=== PATIENT | female | born 2000 | race Caucasian/White ===

== ENCOUNTER 2022-02-01 19:29 | Emergency (ER) | payer OTHER ==
[~2022-02-01] VITALS: Ht 165.1 cm; Wt 77.1 kg
[2022-02-01] MEDS ORDERED: TARINA FE 1-201 EAC1 PO (21:41)
[2022-02-01] MEDS ORDERED: NAPROSYN500 MG PO (23:23)
== END 2022-02-01 23:31 | disposition home or self-care (01) ==
LOC: ED 19:29
DX: S09.90XA Unspecified injury of head, initial encounter (principal); V89.2XXA Person injured in unspecified motor-vehicle accident, traffic, initial encounter; Y93.89 Activity, other specified; Y92.89 Other specified places as the place of occurrence of the external cause; Y99.8 Other external cause status